=== PATIENT | female | born 1940 | race Caucasian/White ===

== ENCOUNTER 2016-12-19 12:21 | Emergency (ER) | payer SELFPAY ==
[~2016-12-19 12:21] MED LIST: Sodium Chloride 0.9% 1,000 ML BAG ONE; Sodium Chloride 0.9% 500 ML BAG ONE
[2016-12-19 13:03] LABS: #Basophils 0.1 thou/uL (0.0-0.2); #Eosinphils 0.1 thou/uL (0.0-0.7); #Lymphocytes 1.5 thou/uL (1.20-3.40); #Monocytes 0.4 thou/uL (0.11-0.59); #Neutrophils 3.9 thou/uL (1.40-6.50); %Eosinophils 2.2 % (0.0-10.0); %Lymphocytes 24.9 % (21.0-51.0); %Monocytes 7.1 % (0.0-10.0); %Neutrophils 64.8 % (42.0-75.0); Hemoglobin 11.6 g/dL (12.0-16.0); Mean Corpuscular Hemoglobin 28.4 pg (27.0-31.0); Mean Corpuscular Volume 91.5 fl (81.0-99.0); Platelet Count 219 thou/uL (130-400); RBC Distribution Width 15.1 % (11.5-14.5); Red Blood Cell (RBC) Count 4.08 mill/uL (4.20-5.40); White Blood Cell (WBC) Count 5.9 thou/uL (4.8-10.8)
[2016-12-19 13:17] LABS: PTT 27.2 SEC (22.9-36.1); Prothrombin Time 13.6 SEC (12.0-14.7)
[2016-12-19 13:26] LABS: ALT (SGPT) 13 U/L (8-55); AST (SGOT) 18 U/L (5-34); Alkaline Phosphatase 53 U/L (40-150); Anion Gap 16 mmol/L (10-20); BUN (Urea Nitrogen) 46 mg/dL (9.8-20.1); Bilirubin, Total 0.6 mg/dL (0.2-1.2); CK (CPK) 56 U/L (29-168); Calc. Creatinine Clearance 0 mL/min (70-130); Calcium 9.5 mg/dL (7.8-10.44); Carbon Dioxide 26 mmol/L (23-31); Chloride 98 mmol/L (98-107); Estimated GFR-MDRD 29; Globulin 3.4 g/dL (2.4-3.5); Glucose 257 mg/dL (83-110); Potassium 4.2 mmol/L (3.5-5.1); Protein, Total 7.4 g/dL (6.0-8.3); Sodium 136 mmol/L (136-145)
[2016-12-19 13:32] LABS: CKMB 3.5 ng/mL (0-6.6); Troponin I 0.011 ng/mL (< 0.028)
[2016-12-19 13:53] LABS: Hemoglobin A1c 10.6 % (4.0-6.0)
--- NOTE | 2016-12-19 14:39 | RAD ---
PORTABLE CHEST ONE VIEW: 12/19/2016 12:51 p.m. HISTORY: Weakness and elevated blood sugar. FINDINGS: The heart size is normal. No confluent areas of consolidation, pneumothorax, or pleural effusions s een. IMPRESSION: No acute process. POS: DAVIDH
--- NOTE | 2016-12-19 16:30 | CT ---
NONCONTRAST HEAD CT: HISTORY: Intermittent altered mental status. COMPARISON: None. TECHNIQUE: A noncontrast head CT is performed from the skull base to the skull vertex. FINDINGS: Limited evaluation of the skull base due to motion degradation. No parenchymal hemorrhage. No extraaxial hematoma. No midline shift. Basilar cisterns are patent. Age appropriate atrophy. Cortical adams white matter differentiation is preserved. The ventricles and sulci are patent and symmetric. White matter hypodensities due to chronic small vessel ischemic changes are noted. Intact calvarium. Adequate aeration of the sinuses and mastoid air cells. atherosclerosis is identified. Calcification of the pineal gland is noted. IMPRESSION: No acute intracranial process. Limited evaluation due to motion degradation. POS: CASIMIRO
== END 2016-12-19 18:41 | disposition home or self-care (01) ==
LOC: MADERS 12:21
DX: E11.65 Type 2 diabetes mellitus with hyperglycemia (principal); I12.9 Hypertensive chronic kidney disease with stage 1 through stage 4 chronic kidney disease, or unspecified chronic kidney disease; E11.22 Type 2 diabetes mellitus with diabetic chronic kidney disease; N18.2 Chronic kidney disease, stage 2 (mild); F03.90 Unspecified dementia, unspecified severity, without behavioral disturbance, psychotic disturbance, mood disturbance, and anxiety; Z79.84 Long term (current) use of oral hypoglycemic drugs; Z79.899 Other long term (current) drug therapy
CPT/HCPCS: 36416; 70450; 71010; 80053; 82550; 82553; 83036; 83880; 84484; 85025; 85610; 85730; 93005; 94760; 96360; 96361; J7050